=== PATIENT | female | born 1980 | race Caucasian/White ===

== ENCOUNTER 2021-03-01 11:47 | Outpatient (CLI) | payer MEDICAID, OTHER ==
[2021-03-01 13:27] VITALS: BP 117/72; PULSE 82; RESP 16; TEMP 98.4
--- NOTE | 2021-03-02 08:40 | P.MSEPDOC ---
Presenting Problems - Arrival Data Date of Arrival on Unit: 03/01/21 Time of Arrival on Unit: 11:47 Mode of Transport: Ambulatory - Complaint OB-Reason for Admission/Chief Complaint: NST Comment: pt sent over from the office for a NST per Dr De La O Medical History - Information : 3 Para: 2 Term: 2 : 0 Abortions: Spontaneous or Elective: 0 Number of Living Children: 2 - Gestational Age Gestational Age by NIKKY (wks/days): 32 Weeks and 3 Days - History Comment: pt has seeked late prenatel care with dr de la o due to her not knowing she was . pt states she thought she was in premenopause Review of Systems - Review of Systems Constitutional: No problems Breast: No problems ENT: No problems Cardiovascular: No problems Respiratory: No problems Gastrointestinal: No problems Genitourinary: No problems Musculoskeletal: No problems Neurological: No problems Skin: No problems Vital Signs - Temperature Temperature: 98.4 F Temperature Source: Oral - Pulse Right Brachial Pulse Rate: 82 Pulse Assessment Method: Automatic Cuff - Respirations Respiratory Rate: 16 Oxygen Delivery Method: Room Air O2 Sat by Pulse Oximetry: 98 - Blood Pressure Right Arm Blood Pressure: 117/72 Blood Pressure Mean: 87 Blood Pressure Source: Automatic Cuff Medical Screen Scoring - Cervical Exam Membranes: Intact - Uterine Contractions Intensity: Mild Resting: Soft to palpation - Assessment - Baby A Baseline FHR: 130 Heart Rate - NICHD Category: Category I (Normal) Physician Notification - Physician Notified Physician Notified Date: 03/01/21 Physician Notified Time: 13:06 Physician: Dr De La O New Order Received: Yes - Notification Comment Comment: May discharge to home and have pt keep scheduled appoinment for next week Maternal Triage Index - Maternal Triage Index Presenting for scheduled procedure w/no complaint: Yes - Scheduled/Requesting Priority 5 Scheduled/Requesting Priority 5: Yes Criteria Met for Priority 5: pt sent over from dr de la o office for a NST 32 3/7 weeks gestation with late care Disposition - Disposition OB Disposition: Discharge to home Discharge Date: 03/01/21 Discharge Time: 13:17 I agree with the RN Medical Screening Exam: Yes Case reviewed; plan agreed upon as documented in EMR&OBIX.: Yes Comments: Patient was neither seen nor examined by me Diagnosis: RELATED CONDITIONS, UNSPECIFIED, THIRD TRIMESTER
== END 2021-03-01 13:17 | disposition home or self-care (01) ==
LOC: FBPOP 11:47
PROVIDERS: ATTEND Obstetrics & Gynecology
DX: O09.523 Supervision of elderly multigravida, third trimester (principal); Z3A.32 32 weeks gestation of pregnancy
CPT/HCPCS: 59025; 99213

== ENCOUNTER 2021-04-16 06:05 | Inpatient (IN) | payer MEDICAID, OTHER ==
[2021-04-10 11:26] VITALS: BMI 33.7
[2021-04-16] MEDS ORDERED: CITRIC ACID-SODIUM CITRATE 15 ML CUP PO ONE (06:27)
[2021-04-16 06:58] LABS: Basophils # (A) 0.1 k/uL (0-0.2); Basophils % (A) 1 %; Eosinophils # (A) 0.3 k/uL (0-0.7); Eosinophils % (A) 2 %; HCT 38.1 % (34.0-46.0); HGB 12.8 gm/dL (11.4-16.0); Lymphocytes # (A) 2.5 k/uL (1.0-4.8); Lymphocytes % (A) 21 %; MCH 31.8 pg (25.0-35.0); MCHC 33.6 g/dL (31.0-37.0); MCV 94.6 fL (80.0-100.0); Mean Platelet Volume 7.5; Monocytes # (A) 0.7 k/uL (0-1.0); Monocytes % (A) 6 %; Neutrophils # (A) 8.1 k/uL (1.3-7.7); Neutrophils % (A) 67 %; Platelet Count 316 k/uL (150-450); RBC 4.03 m/uL (3.80-5.40); RDW 13.8 % (11.5-15.5); WBC 12.1 k/uL (3.8-10.6)
[2021-04-16] MEDS: LACTATED RINGERS 1,000 ML IV SCH ×3 (07:11→23:08)
[2021-04-16] MEDS ORDERED: OXYTOCIN 30 UNITS/500 ML NS BAG IV ONE (07:57)
[2021-04-16] MEDS ORDERED: KETOROLAC 15 MG/ML 1 ML VIAL ONE (07:57)
[2021-04-16] MEDS ORDERED: ONDANSETRON 4 MG/2 ML VIAL ONE (07:57)
[2021-04-16] MEDS ORDERED: MORPHINE SULFATE (PF) 0.3 MG/0.3 ML SYR ONE (07:57)
--- NOTE | 2021-04-16 07:59 | P.HPOB ---
History of Present Illness H&P Date: 04/16/21 Chief Complaint: For elective repeat and tubal ligation This is a 40-year-old female 3 para 2001 EDC 04/23/2021 at 39 weeks gestation who presents this morning for repeat low transverse section and tubal ligation. History is remarkable for 2 previous sections, please see below. Patient denies vaginal bleeding, fluid leakage, HSV outbre aks, or any difficulties this morning. Past medical history is significant for ADHD, chronic hypertension, migraine headaches, history of HSV infections. Past surgical history sections , 1999 and 2004. Social history patient is , her Jaxon is present. She works at [employer]. She denies alcohol tobacco or drug use. Current medications propranolol 60 mg daily, valacyclovir 500 mg daily, vitamin daily, baby aspirin daily. ALLERGIES none known. Family history significant for heart failure and bicuspid aortic valve. history blood type is O+, rubella status immune. VDRL testing, urine culture, hepatitis B surface antigen, HIV testing all negative. Group B strep cultures positive. Gonorrhea and chlamydia cultures negative. One-hour Glucola 144, 3 hour GTT within normal limits. On exam patient is 5 foot 0 inches, 173 pounds, blood pressure 122/77, pulse 79, respirations 18, pulse ox 99%, temperature 97.0. The general physical exam is within normal limits. Cervix is long thick and closed. Extremities reveal no edema. Chest is clear in all licea. Patient denies HSV outbreaks. heart rate is consistent with reactive NST. Impression: 39 week intrauterine , 2 previous sections, undesired fertility, advanced maternal age. History of HSV, no current outbreaks. History of chronic hypertension, blood pressure normal on propranolol. Plan: For repeat low transverse section, antibiotic prophylaxis, and tubal ligation. All risks and benefits reviewed. All questions answered. Review of Systems Constitutional: Reports as per HPI Past Medical History Past Medical History: Hypertension History of Any Multi-Drug Resistant Organisms: None Reported Past Surgical History: Section Additional Past Surgical History / Comment(s): surgery for fx jaw and skull 1986 Past Anesthesia/Blood Transfusion Reactions: Previous Problems w/ Anesthesia Additional Past Anesthesia/Blood Transfusion Reaction / Comment(s): previous c/s had epidural was feeling had to have higher dosage Past Psychological History: No Psychological Hx Reported Smoking Status: Former smoker Past Alcohol Use History: None Reported Past Drug Use History: None Reported - Past Family History Mother Family Medical History: No Reported History Father Family Medical History: No Reported History Medications and Allergies Home Medications Medication Instructions Recorded Confirmed Type Pnv,Calcium 72/Iron/Folic Acid 1 each PO DAILY 03/01/21 04/16/21 History [ Plus Tablet] Propranolol HCl 60 mg PO DAILY 03/01/21 04/16/21 History valACYclovir [Valtrex] 500 mg PO DAILY 03/01/21 04/16/21 History Nortriptyline [Pamelor] 25 mg PO Q48H 04/10/21 04/16/21 History Allergies Allergy/AdvReac Type Severity Reaction Status Date / Time No Known Allergies Allergy Verified 04/16/21 06:26 Exam Vital Signs Temp Pulse Resp BP 04/16/21 06:41 97.0 F L 79 18 122/77 Intake and Output 04/15/21 04/16/21 04/16/21 22:59 06:59 14:59 Other: Weight 78.471 kg See dictation under HPI please Results Result Diagrams: 04/16/21 06:38 Abnormal Lab Results - Last 24 Hours (Table) 04/16/21 Range/Units 06:38 WBC 12.1 H (3.8-10.6) k/uL Neutrophils # 8.1 H (1.3-7.7) k/uL Assessment and Plan Assessment: 39 week intrauterine , 2 previous sections, advanced maternal age, chronic hypertension, undesired fertility, history of HSV. Outbreaks, blood pressure stable. Positive group B strep culture status noted Plan: For repeat low transverse section and tubal ligation. All signs reassuring. All questions answered. Antibiotic prophylaxis. Time with Patient: Less than 30
--- NOTE | 2021-04-16 09:08 | P.OP ---
Date of Procedure: 04/16/21 Preoperative Diagnosis: He 9 weeks, 2 previous C-sections, advanced maternal age, chronic hypertension, undesired fertility Postoperative Diagnosis: Same, liveborn male infant. Procedure(s) Performed: Repeat low transverse section, bilateral tubal ligation Anesthesia: spinal Surgeon: Dahlia De La O [employer] Equipment Tender #1: Mee Pérez Estimated Blood Loss (ml): 670 IV fluids (ml): 1,000 Urine output (ml): 100 Pathology: none sent Condition: stable Disposition: PACU Operative Findings: Liveborn male infant with scores of 9 and 9 at one and 5 minutes respectively, 5 lbs. 11 oz. or 2590 g.. Tubes and ovaries bilaterally. Very thin lower uterine segment. Description of Procedure: Patient is brought to the operating suite where a spinal analgesia is administered. She's placed in the dorsal supine position with left lateral uterine displacement. Antibiotics are given. The appropriate timeout was performed to assure proper patient and procedural identification. The abdomen is prepped and draped in usual sterile fashion. A low transverse skin incision is made in this is carried down through the subcutaneous tissue to the fascia. Fascia is isolated, scored, and extended bilaterally with curved Martin scissors. Peritoneum is next identified and incised, there is no bowel or bladder involvement. A repeat low transverse uterine incision is made, the lower u terine segment is extremely thin. The infant's head is delivered in the occiput anterior position. There is no nuchal cord noted. Patient is officially delivered of a liveborn male infant at 0821 hours. Umbilical cord is doubly clamped and ligated, he is handed to waiting nurses for evaluation where scores of 9 and 9 at one and 5 minutes respectively are given. weighs 5 lbs. 11 oz. or 2590 g. The placenta delivers manually, it is inspected and noted to be intact with trivascular cord at 0822 hours. At this time the uterus is externalized and massaged. Oxytocin is given. U terus is swept clean with a sterile sponge to avoid any products of conception. The uterus is closed in a two-step fashion, first layer running locking with 0 Vicryl, second layer imbricated. Excellent reapproximation and hemostasis is noted. Bilateral tubes and ovaries are inspected and noted to be normal. Patient's desire for tubal ligation is confirmed. Filshie clips are used in the isthmic portion of each tube to completely occlude them, with care to traverse the entire diameter of the tube into the mesal salpinx. Posteriorly the abdomen is then suctioned with suction on guard into the abdominal cavity. The uterus is then gently placed into the abdominal cavity. Bilateral gutters are inspected and cleaned. Peritoneum is allowed to close by secondary intention. Fascia is closed in a running stitch of 0 Vicryl with over ligation in the midline. Subcutaneous tissue is clean and dry. It is reapproximated with 3-0 Vicryl in a running fashion. 4-0 undyed Monocryl is used for final skin closure. Steri-Strips and Mastisol are applied to the wound. The uterus is massaged for a moderate amount of bleeding. All sponge needle and enhancement counts are correct. [place] is noted to be draining clear urine. Patient is brought back to the recovery room in stable condition with a blood pressure 118/62, pulse 88, 100% O2 saturation. Total fluid replacement 1000 mL's. Calc ulated blood loss 670 mL's. Patient is
[2021-04-16] MEDS ORDERED: diphenhydrAMINE 50 MG/ML 1 ML VIAL IVP PRN ×2 (09:09)
[2021-04-16] MEDS ORDERED: diphenhydrAMINE 25 MG CAP PO PRN (09:09)
[2021-04-16] MEDS ORDERED: NALOXONE 0.4 MG/ML 1 ML VIAL IV PRN (09:09)
[2021-04-16] MEDS ORDERED: ZOLPIDEM 5 MG TAB PO PRN (09:09)
[2021-04-16] MEDS ORDERED: diphenhydrAMINE 50 MG CAP PO PRN (09:09)
[2021-04-16] MEDS ORDERED: METOCLOPRAMIDE 5 MG/ML 2 ML VIAL IVP PRN (09:09)
[2021-04-16] MEDS ORDERED: ONDANSETRON 4 MG/2 ML VIAL IVP PRN (09:09)
[2021-04-16] MEDS ORDERED: LACTATED RINGERS 1,000 ML IV SCH (09:15)
[2021-04-16] MEDS ORDERED: OXYTOCIN 30 UNITS/500 ML NS 30 UNIT in SALINE 1 500ML.BAG IV SCH (09:30)
[2021-04-16] MEDS: ACETAMINOPHEN TAB 500 MG TAB PO SCH ×2 (13:08→19:35)
[2021-04-16] MEDS: IBUPROFEN 600 MG TAB PO SCH ×2 (15:58→23:07)
[2021-04-16] MEDS: SENNOSIDES-DOCUSATE SODIUM 1 EACH TAB PO SCH (20:27)
[2021-04-17] MEDS: LACTATED RINGERS 1,000 ML IV SCH (04:41)
[2021-04-17] MEDS: ACETAMINOPHEN TAB 500 MG TAB PO SCH ×5 (04:42→23:06)
--- NOTE | 2021-04-17 07:06 | P.PN ---
Progress Note - Text 04/17/21 636am 40-year-old female status post with spinal Duramorph. She was seen and evaluated this morning for postop pain control, she has a VAS of. Nausea vomiting and pruritus has resolved. Patient doing very well
[2021-04-17 07:52] LABS: Basophils # (A) 0.1 k/uL (0-0.2); Basophils % (A) 0 %; Eosinophils # (A) 0.4 k/uL (0-0.7); Eosinophils % (A) 3 %; HCT 33.8 % (34.0-46.0); HGB 11.3 gm/dL (11.4-16.0); Lymphocytes # (A) 2.1 k/uL (1.0-4.8); Lymphocytes % (A) 14 %; MCHC 33.5 g/dL (31.0-37.0); MCV 95.7 fL (80.0-100.0); Mean Platelet Volume 7.9; Monocytes # (A) 0.6 k/uL (0-1.0); Monocytes % (A) 4 %; Neutrophils # (A) 11.4 k/uL (1.3-7.7); Neutrophils % (A) 77 %; Platelet Count 298 k/uL (150-450); RBC 3.53 m/uL (3.80-5.40); RDW 13.7 % (11.5-15.5); WBC 14.7 k/uL (3.8-10.6)
--- NOTE | 2021-04-17 07:58 | P.PN ---
Subjective Progress Note Date: 04/17/21 Principal diagnosis: Post operative day #1 Positive flatus. Minimal pain. Minimal lochia rubra. No complaints. Objective - Vital Signs Vital signs: Vital Signs Temp 98.1 F 04/17/21 04:00 Pulse 69 04/17/21 04:00 Resp 17 04/17/21 04:00 BP 100/63 04/17/21 04:00 Pulse Ox 98 04/17/21 04:00 Intake & Output 04/16/21 04/17/21 04/17/21 18:59 06:59 18:59 Output Total 350 500 Balance -350 -500 Output: Urine 350 500 Uretheral ([place]) 200 Other: Voiding Method Toilet - Constitutional General appearance: Present: average body habitus, cooperative - EENT Eyes: Present: PERRLA ENT: Present: hearing grossly normal - Respiratory Respiratory: bilateral: CTA - Cardiovascular Rhythm: regular - Gastrointestinal General gastrointestinal: Present: normal bowel sounds - Genitourinary Genitourinary Comment(s): Incision clean and dry, intact, Steri-Strips applied. Fundus firm, midline, 18 week size - Integumentary Integumentary: Present: normal - Neurologic Neurologic: Present: CNII-XII intact - Musculoskeletal Musculoskeletal: Present: strength equal bilaterally - Psychiatric Psychiatric: Present: A&O x's 3, appropriate affect, intact judgment & insight - Labs CBC & Chem 7: 04/17/21 07:32 Labs: Abnormal Lab Results - Last 24 Hours (Table) 04/17/21 Range/Units 07:32 WBC 14.7 H (3.8-10.6) k/uL RBC 3.53 L (3.80-5.40) m/uL Hgb 11.3 L (11.4-16.0) gm/dL Hct 33.8 L (34.0-46.0) % Neutrophils # 11.4 H (1.3-7.7) k/uL Assessment and Plan Assessment: Doing well first postoperative day Plan: Circumcision now. Advanced diet and activity. Likely discharge home tomorrow. Time with Patient: Less than 30
[2021-04-17] MEDS: IBUPROFEN 600 MG TAB PO SCH ×4 (08:06→19:55)
[2021-04-17] MEDS: SENNOSIDES-DOCUSATE SODIUM 1 EACH TAB PO SCH ×2 (08:06→19:55)
[2021-04-17] MEDS: PROPRANOLOL 20 MG TAB PO SCH (11:09)
[2021-04-18] MEDS: IBUPROFEN 600 MG TAB PO SCH (03:28)
[2021-04-18] MEDS: ACETAMINOPHEN TAB 500 MG TAB PO SCH (06:35)
--- NOTE | 2021-04-18 07:28 | P.DS ---
Providers Date of admission: 04/16/21 06:05 Expected date of discharge: 04/18/21 Attending physician: Dahlia De La O Primary care physician: Stated None Hospital Course: This is a 40-year-old white female 3 para 2001 EDC 04/23/2021 at 39 weeks gestation who presented for repeat low transverse section and tubal ligation. is remarkable for blood type O+, rubella status immune, positive group B strep cultures, advanced maternal age. Patient had a history of hypertension, blood pressure on admission 122/77. Please see dictated history and physical for details. Patient underwent a repeat low transverse section giving to a liveborn male infant with scores of 9 and 9 at one and 5 minutes respectively. He weighed 2590 g or 5 lbs. 11 oz. Estimated blood loss 670 mL's. Please see dictated operative note for details. This morning the patient and her are both doing well. Patient is voiding, ambulating, passing flatus without difficulty. Vital signs are stable and she is afebrile. She has not been hypertensive since delivery. infant is doing well, circumcision has been performed. Patient's breasts are not engorged, incision is clean and dry, intact, Steri-Strips applied. Fundus is firm, midline, symmetric, 18 week size. Extremities reveal no edema. Patient is judged to be in very good condition for discharge home. She will use Advil, Motrin or Aleve as needed for pain. She will call with any fevers shakes or chills, foul smelling or copious lochia, with the passage of large blood clots, with any pain not relieved by [id number] products, or i ndeed with any concerns. [place] infant will follow-up with barrel plater as per recommendations. Assessment: Doing well second postoperative day Patient Condition at Discharge: Good Plan - Discharge Summary Discharge Rx Participant: No New Discharge Prescriptions: No Action valACYclovir [Valtrex] 500 mg PO DAILY Pnv,Calcium 72/Iron/Folic Acid [ Plus Tablet] 1 each PO DAILY Propranolol HCl 60 mg PO DAILY Nortriptyline [Pamelor] 25 mg PO Q48H Discharge Medication List Pnv,Calcium 72/Iron/Folic Acid [ Plus Tablet] 1 each PO DAILY 03/01/21 [History] Propranolol HCl 60 mg PO DAILY 03/01/21 [History] valACYclovir [Valtrex] 500 mg PO DAILY 03/01/21 [History] Nortriptyline [Pamelor] 25 mg PO Q48H 04/10/21 [History] Follow up Appointment(s)/Referral(s): Dahlia De La O MD [STAFF PHYSICIAN] - 2 Weeks Discharge Disposition: HOME SELF-CARE
[2021-04-18] MEDS: SENNOSIDES-DOCUSATE SODIUM 1 EACH TAB PO SCH (07:37)
[2021-04-18] MEDS: PROPRANOLOL 20 MG TAB PO SCH (07:37)
[2021-04-18 07:39] VITALS: BP 114/76; PULSE 82; RESP 16; TEMP 98.1
== END 2021-04-18 11:50 | disposition home or self-care (01) | DRG 784 ==
LOC: 4FBP 06:05
PROVIDERS: ADMIT Obstetrics & Gynecology; ATTEND Obstetrics & Gynecology
PROC: 0UB70ZZ Excision of Bilateral Fallopian Tubes, Open Approach (ICD-10-PCS; 2021-04-16)
PROC: 10D00Z1 Extraction of Products of Conception, Low, Open Approach (ICD-10-PCS; principal; 2021-04-16 08:00)
DX: O34.211 Maternal care for low transverse scar from previous cesarean delivery (principal); O98.32 Other infections with a predominantly sexual mode of transmission complicating childbirth; O16.4 Unspecified maternal hypertension, complicating childbirth; O99.824 Streptococcus B carrier state complicating childbirth; O99.343 Other mental disorders complicating pregnancy, third trimester; F90.9 Attention-deficit hyperactivity disorder, unspecified type; A60.09 Herpesviral infection of other urogenital tract; O99.353 Diseases of the nervous system complicating pregnancy, third trimester; G43.909 Migraine, unspecified, not intractable, without status migrainosus; Z30.2 Encounter for sterilization; Z37.0 Single live birth; Z3A.39 39 weeks gestation of pregnancy; Z79.82 Long term (current) use of aspirin; Z79.899 Other long term (current) drug therapy; Z87.891 Personal history of nicotine dependence
CPT/HCPCS: 85025; 86850; 86900; 86901